=== PATIENT | female | born 2005 | race Caucasian/White ===

== ENCOUNTER 2025-02-08 16:45 | Emergency (ER) | payer BC, SELFPAY ==
--- OUTSIDE RECORDS SUMMARY | 2025-02-08 16:48 | XMS_ITS | Clinical Summary ---
Author Organization [employer] [facility] Address [address] [place] [id number] Care Team Providers Care Side Hemmer Name Role Phone Christina Frye MD Primary Care Provider [phone] Allergies Active Allergy Reactions Criticality Noted Date Comments Amoxicillin Rash 11/19/2014 Cephalexin Rash 11/19/2014 Medications traZODone (DESYREL) 50 mg tabletIndicatio ns:Anxiety,Inso mnia, idiopathic Take 0.5-1 Tablets (25-50 mg) by mouth at bedtime if needed for Sleep or Anxiety. 31 Tablet 1 5 Active escitalopram oxalate (LEXAPRO) 20 mg tabletIndicatio ns:Anxiety Take 1 Tablet (20 mg) by mouth once daily in the morning. 90 Tablet 3 5 Active famotidine (PEPCID) 20 mg tabletIndicatio ns:Chronic GERD Take 1 Tablet (20 mg) by mouth once daily if needed for GI Upset. 90 Tablet 1 5 Active traZODone (DESYREL) 50 mg tabletIndicatio ns:Anxiety,Inso mnia, idiopathic Take 0.5-1 Tablets (25-50 mg) by mouth at bedtime if needed for Sleep or Anxiety. 31 Tablet 1 4 01/10/20 25 Discontinu ed(Reorder (E-cancel not sent)) escitalopram oxalate (LEXAPRO) 10 mg tabletIndicatio ns:Anxiety Take 1 Tablet (10 mg) by mouth once daily in the morning. 90 Tablet 4 01/10/20 25 Discontinu ed(*Medica tion adjustment ) famotidine (PEPCID) 20 mg tabletIndicatio ns:Chronic GERD Take 1 Tablet (20 mg) by mouth once daily if needed for GI Upset. 90 Tablet 1 4 01/10/20 25 Discontinu ed(Reorder (E-cancel not sent)) Active Problems Problem Noted Date Diagnosed Date Cervical cancer screening 01/21/2025 Overview (01/21/2025): 12/2024 UNS Plan: Repeat PAP no later than 4 months Encounters Date Type Department Care Team Description 02/08/2025 3:05 PM CDT E-Visit [facility] [address] [place] [address] Bhavya Altamirano, RN Student eVisit for Diarrhea 02/08/2025 Nurse Triage [facility] [address] [place] [address] Christina Frye MD Diarrhea 01/10/2025 7:55 AM LANGUAGE PATHOLOGIST Office Visit [facility] [address] [place] [address] Christina Frye MD Physical (19 Year Old ); Pap Plan (First one); Medication Management (increase dosage) 01/10/2025 Travel from Last 3 Months Immunizations Immunization Administration Dates Next Due AMB Influenza, IIV4 PF (=>6 mos Flulaval,Fluzone Fluarix)(Flu Clinic Only) 08/20/2014 COVID-19 VACCINE SPIKEVAX (M ODERNA 50MCG/0.5ML) 12YO+ PFS 09/27/2024 COVID-19 vaccine (CranewareBio NTech 30mcg/0.3mL) PF, MDV 10/27/2021,03/21/2021,02/28/2021 DTaP 12/17/2008,04/30/2005 CJkN-BlmH-QFP (Pediarix) 06/10/2004,04/14/2004,0 02/07/2004 HIB PRP-OMP (PedvaxHIB) 12/22/2004,04/14/2004, HPV 9 (Gardasil 9) 08/20/2016,07/08/2015 Hepatitis A (Peds) 10/02/2012,07/04/2009 Hepatitis B (Peds) 04/14/2004,02/07/2004, 004 INFLUENZA, IIV3 PF (AGE >= 6 MO) 09/27/2024 Inactivated Polio Vaccine 12/17/2008 Influenza, IIV3 (Age >=3 years) 12/17/19 09,09/27/2007,12/19/2006,10/26 Influenza, IIV4 09/14/2023,,08/06/2020,10/22,08/14/2018,07/27/2017,08/20/2016 Influenza,LAIV4 Live Intrana [place]lando (Flumist) 09/21/2012 MENINGOCOCCAL VACCINE 2 VIAL 2MO-55YO (MENVEO) 12/12/2020,07/08/2015 MMR 12/17/2008,12/22/2004 Pneumococcal conj 7-Valent (Prevnar 7) 0 12/22/2004,06/10/2004,04/14/2004,02/06 Tdap 07/08/2015 Varicella Vaccine 12/17/2008,12/22/2004 Family History Medical History Relation Name Comments Cancer Father esophageal canc er Cancer-breast Maternal Grandmother good o utcome Cancer-colon Other maternal great grandmother Relation Name Status Comments Father Maternal Grandmother Other Social History Tobacco Use Types Packs/Day Years Used Date Smoking Tobacco: Never Passive Smoke Exposure: Never Smokeless Tobacco: Never Tobacco Cessation:Counseling Given: Yes Alcohol Use Standard Drinks/Week Comments No 0 (1 standard drink = 0.6 oz pur e alcohol) PHQ-2 Answer Date Recorded PHQ-2 TOTAL SCORE 3 06/13/2024 Social Connections Answer Date Recorded Do you often feel lonely or isolated from those around you? 0 01/22/2024 Financial Resource Strain Answer Date R ecorded Difficulty of Paying Living Expenses 3 01/22/2024 Difficulty of Paying Living Expenses Not on file 01/22/2024 Food Insecurity Answer Date Recorded Do you worry your food will run out before you are able to buy more? 1 01/22/2024 Transportation Needs Answer Date Record ed Does lack of transportation keep you from medica l appointments? 1 01/22/2024 Does lack of transportation keep you from work, meetings or getting things that you need? 1 01/22/2024 Housing Stability Answer Date Recorded What is your housing situation today? 1 01/22/2024 Utilities Answer Date Recorded Do you have trouble paying f or utilities (for example, heat, electricity, water, phone)? 1 01/22/2024 Comments No Sex and Gender Information Value Date Recorded Sex Assigned at Not on file Legal Sex Female 8:39 AM CDT Gender Identity Not on file Sexual Orientation Not on file Obstetrics History Para Term AB IAB SAB Ectopic Multiple Livin g Live Births 0 0 Last Filed Vital Signs Vital Sign Reading Time Taken Comments Blood Pressure 86/61 01/10/2025 8:08 AM LANGUAGE PATHOLOGIST Pulse 77 01/10/2025 8:08 AM LANGUAGE PATHOLOGIST Temperature 37.4 C (99.4 F) 11/04/2021 2:59 PM LANGUAGE PATHOLOGIST Respiratory Rate 16 06/08/2017 11:18 AM CDT Oxygen Saturation 100% 01/10/2025 8:08 AM LANGUAGE PATHOLOGIST Inhaled Oxygen Concentration - - Weight 70.8 kg (156 lb) 01/10/2025 8:08 AM LANGUAGE PATHOLOGIST Height 173 cm (5' 8.11) 01/10/2025 8:08 AM LANGUAGE PATHOLOGIST Body Mass Index 23.64 01/10/2025 8:08 AM LANGUAGE PATHOLOGIST Plan of Treatment Upcoming Encounters Date Type Department Care Team (Late st Contact Info) Description 03/07/2025 11:15 AM CDT Telemedicine [facility] [address] [place] [address] Christina Frye MD [address] [place] [address] Health Maintenance Due Date Last Done Comments Pap test for age 21-65 2024 Depression screening for age 12+ 06/13/2025 06/13/2024, 10/19/2023, 08/30/2023, Additional history exists Tetanus booster 07/08/2025 07/08/2015 BMI (ht and wt on same day) for age 18+ 01/10/2026 01/10/2025 Chlamydia for age 16-24 01/10/2026 01/10/20, 06/23/2021, 12/03/2020 Pneumococcal series for age 6-49 Aged Out 12/22/2004, 06/10/2004, 04/14/2004, Additional history exists No longer eligible based on patient's age to complete this topic Tdap Completed 07/08/2015 HPV series for age 9-26 Completed 08/20/2016, 07/08 Meningococcal series for age 11-21 Completed 12/12/2020, 07/08/2015 COVID-19 vaccine series Completed 09/27/20, 11/17/2022, 10/27/2021, Additional history exists Influenza Vaccine Completed 09/27/2024, , 11/17/2022, Additional history exists HIV for age 15-65 Completed 01/10/2025 Hepatitis C screening for age 18-79 Completed 01/10/2025 Procedures Procedure Name Priority Date/Time Associated Diagnosis Comments ANTI HIV 1/2 Routine 01/10/2025 8:50 AM LANGUAGE PATHOLOGIST Screening for HIV (human immunodeficiency virus) ANTI HCV Routine 01/10/2025 8:50 AM LANGUAGE PATHOLOGIST Need for hepatitis C screening test LIPID PANEL W REFLEX MEASURED LDL Routine 01/10/2025 8:50 AM LANGUAGE PATHOLOGIST Lipid screening HEMOGLOBIN Routine 01/10/2025 8:50 AM LANGUAGE PATHOLOGIST Hypotension, unspecified hypotension type BASIC METABOLIC PANEL Routine 01/10/2025 8:50 AM LANGUAGE PATHOLOGIST Hypotension, unspecified hypotension type MEDIA EXECUTIVE THIN PREP PAP SCREEN IMAGED- Unsuccessful Attempt Routine 01/10/2025 8:24 AM LANGUAGE PATHOLOGIST Screening for cervical cancer GC CHLAMYDIA TRACH PROBE Routine 01/10/2025 8:24 AM LANGUAGE PATHOLOGIST Screening for chlamydial disease from Last 3 Months Results * LIPID PANEL W REFLEX MEASURED LDL (01/10/2025 8:50 AM LANGUAGE PATHOLOGIST) CHOLESTEROL, TOTAL 159 <200 mg/dL [facility] HDL CHOLESTEROL 52 > OR = 50 mg/dL [facility] TRIGLYCERIDES 106 <150 mg/dL [facility] LDL-CHOLESTEROL 87 mg/dL (calc) [facility] Comment: Reference range: <100 Desirable range <100 mg/dL for primary prevention; <70 mg/dL for patients with CHD or diabetic patients with > or = 2 CHD risk factors. LDL-C is now calculated using the Shahram-Wang calculation, which is a validated novel method providing better accuracy than the Friedewald equation in the estimation of LDL-C. Shahram SS et al. YAKOV. 2013;310(54): 2444-1104 (http://education.[employer]/faq/IJU090) CHOL/HDLC RATIO 3.1 <5.0 (calc) [facility] NON HDL CHOLESTEROL 107 <130 mg/dL (calc) [facility] Comment: For patients with diabetes plus 1 major ASCVD risk factor, treating to a non-HDL-C goal of <100 mg/dL (LDL-C of <70 mg/dL) is considered a therapeutic option. Blood BLOOD SPECIMEN / Unknown 01/10/2025 8:50 AM LANGUAGE PATHOLOGIST 01/10/2025 8:51 AM LANGUAGE PATHOLOGIST us Christina Frye MD CHEMISTRY Final Resul t [employer] [facility] [address] [place] [address], [facility] [address] [place] [address] * ANTI HCV (01/10/2025 8:50 AM LANGUAGE PATHOLOGIST) HEPATITIS C ANTIBODY NON-REACTI VE NON-REACT HANSEL [facility] Comment: HCV antibody was non-reactive. There is no laboratory evidence of HCV infection. In most cases, no further action is required. However, if recent HCV exposure is suspected, a test for HCV RNA (test code 49520) is suggested. For additional information please refer to http://education.[employer]faq/YMH18s8 (This link is being provided for informational/ educational purposes only.) Blood BLOOD SPECIMEN / Unknown 01/10/2025 8:50 AM LANGUAGE PATHOLOGIST 01/10/2025 8:51 AM LANGUAGE PATHOLOGIST Christina Frye MD SEND OUTS Final Resul t [employer] [address] [address], [facility] [address] [place] [phone] * HEMOGLOBIN (01/10/2025 8:50 AM LANGUAGE PATHOLOGIST) HEMOGLOBIN 14.4 11.7 - 15.5 g/dL [facility] Blood BLOOD SPECIMEN / Unknown 01/10/2025 8:50 AM LANGUAGE PATHOLOGIST 01/10/2025 8:51 AM LANGUAGE PATHOLOGIST Christina Frye MD HEMATOLOGY Final Resul t Performing Organization Address [facility] Co de Phone Number [employer] [address] [address], [facility] [address] [place] [phone] * ANTI HIV 1/2 [22591.0] (01/10/2025 8:50 AM LANGUAGE PATHOLOGIST) HIV AG/AB, 4TH GEN NON-REACT HANSEL NON-REACT HANSEL [facility] [place] Comment: HIV-1 antigen and HIV-1/HIV-2 antibodies were not detected. There is no laboratory evidence of HIV infection. PLEASE NOTE: This information has been disclosed to you from records whose confidentiality may be protected by state law. If your state requires such protection, then the state law prohibits you from making any further disclosure of the information without the specific written consent of the person to whom it pertains, or as otherwise permitted by law. A general authorization for the release of medical or other information is NOT sufficient for this purpose. For additional information please refer to http://education.[employer]faq/JNU956 (This link is being provided for informational/ educational purposes only.) The performance of this assay has not been clinically validated in patients less than 2 years old. Blood BLOOD SPECIMEN / Unknown 01/10/2025 8:50 AM LANGUAGE PATHOLOGIST 01/10/2025 8:51 AM LANGUAGE PATHOLOGIST us Christina Frye MD SEND OUTS Final Resul t [employer] [facility] [address] [place] [address], [facility] [phone] * BASIC METABOLIC PANEL (01/10/2025 8:50 AM LANGUAGE PATHOLOGIST) Pathologist [facility] GLUCOSE 85 65 - 99 mg/dL [facility] Comment: Fasting reference interval UREA NITROGEN (BUN) 8 7 - 25 mg/dL [facility] CREATININE 0.77 0.50 - 0.96 mg/dL [facility] EGFR 112 > OR = 60 mL/min/1. 73m2 [facility] BUN/CREATININE RATIO SEE NOTE: 6 - 22 (calc) [facility] Comment: Not Reported: BUN and Creatinine are within reference range. SODIUM 138 135 - 146 mmol/L [facility] POTASSIUM 4.5 3.5 - 5.3 mmol/L [facility] CHLORIDE 107 98 - 110 mmol/L [facility] CARBON DIOXIDE 23 20 - 32 mmol/L [facility] ELECTROLYTE BALANCE 8 7 - 17 mmol/L (calc) [facility] CALCIUM 9.6 8.6 - 10.2 mg/dL [facility] Blood BLOOD SPECIMEN / Unknown 01/10/2025 8:50 AM LANGUAGE PATHOLOGIST 01/10/2025 8:51 AM LANGUAGE PATHOLOGIST us Christina Frye MD CHEMISTRY Final Resul t [facility] [address] [place] [address], [place] [phone] [facility] [address] [place] [address] * MEDIA EXECUTIVE THIN PREP PAP SCREEN IMAGED [[id number]] (01/10/2025 8:24 AM LANGUAGE PATHOLOGIST) - Unsuccessful Attempt Case Report Gynecologic Cytology Report Case: [id number] Authorizing Provider: Christina Frye MD Collected: 01/10/2025 0824 Ordering Location: [facility] Received: 01/10/2025 0846 Clinic First Screen: Mandy Mckeon Rescreen: Yojana Ball Specimen: MEDIA EXECUTIVE ThinPrep Vial Screening, Cervical 01/21/2025 1:42 PM CDT [facility] INTERPRETATION /RESULT UNSATISFACTORY FOR EVALUATION (UNS) (none) 01/21/2025 1:42 PM CDT [facility] ENTRAL LABORATORY at 1342 CDT SPECIMEN ADEQUACY Specimen processed and examined, but unsatisfactory for evaluation of epithelial abnormality because of: Scant cellularity Foreign material/lubrican t 01/21/2025 1:42 PM CDT [facility] LABORATORY Date of LMP within last month 2024 1:42 PM CDT [facility] ENTRAL LABORATORY Last Pap Date first 01/21/2025 1:42 PM CDT [facility] Last Pap Result First Pap/Unknown 01/21/2025 1:42 PM CDT [facility] ENTRAL LABORATORY Abnormal Pap or [place] Bx in last 5 years No 01/21/2025 1:42 PM CDT [facility] Menstrual Status Regular Periods 01/21/2025 1:42 PM CDT [facility] [place] Bx Done Today No 01/21/2025 1:42 PM CDT [facility] Additional Information None given 01/21/2025 1:42 PM CDT [facility] Comment: Cytology is screened at [facility] - [address], [place] [address] and [facility] - [address], [place] [address] and [facility] - [address] [place] [address] Interpreted at [facility] - [address], [place] [address] Automated Review Failed 01/21/2025 1:42 PM CDT [facility] Comment:Processing failed, m anual screening required. ThinPrep Imaging System, [employer] Note The pap test is a screening technique, not a diagnostic procedure. It is used primarily to screen for squamous cancers and precursor lesions. Published studies have shown that it is subject to both false negative and false positive results. The pap test should not be used as the sole means to diagnose or exclude pre-malignant and malignant lesions. 01/21/2025 1:42 PM CDT [facility] Other (Cervical) Non-Blood / Unknown 01/10/2025 8:24 AM LANGUAGE PATHOLOGIST 01/10/2025 8:46 AM LANGUAGE PATHOLOGIST us Christina Frye MD PATHOLOGY/CYTOLOGY Final Re sult [facility]ORY [address] [place] [address], * GC & CHLAMYDIA DNA PCR [[id number]] (01/10/2025 8:24 AM LANGUAGE PATHOLOGIST) CHLAMYDIA PROBE Negative 6:03 PM LANGUAGE PATHOLOGIST [facility] TRAL LABORATORY N GONORRHOEAE PROBE Negative 01/10/2025 6:03 PM LANGUAGE PATHOLOGIST [facility] TRAL LABORATORY Other VAGINAL SWAB / Unknown Non-Blood / Unknown 01/10/2025 8:24 AM LANGUAGE PATHOLOGIST 01/10/2025 8:46 AM LANGUAGE PATHOLOGIST us Christina Frye MD MICROBIOLOGY Final Resul t [facility] LAB[facility]ORY [address] [place] [address], [place] from Last 3 Months Insurance [facility] Care Teams Side Hemmer Relationship Specialty Start Date End Date Christina Frye MD [address] [place], [place] [phone] PCP - General Family Practice 01/02/18
[2025-02-08 17:12] VITALS: BP 118/79; PULSE 87; RESP 18; TEMP 37; O2SAT 98; BMI 22.4
--- OUTSIDE RECORDS SUMMARY | 2025-02-08 18:28 | XMS_ITS | Clinical Summary ---
Author Organization [employer] Address [address] [place] [id number] Care Team Providers Care Cigarette Roller Name Role Phone Christina Frye MD Primary Care Provider Allergies Active Allergy Reactions Criticality Noted Date [...] Team Description 02/08/2025 3:05 PM CDT E-Visit [facility] [address] [place] [address] Bhavya Altamirano, RN Student eVisit for Diarrhea 02/08/2025 Nurse Triage [facility] [address] [place] [address] Christina Frye MD Diarrhea 01/10/2025 7:55 AM BASTING PULLER Office Visit [facility] [address] [place] [address] Christina Frye MD Physical (19 Year Old ); Pap Plan (First one); Medication Management (increase dosage) 01/10/2025 Travel from Last 3 Months Immunizations Immunization Administration Dates Next Due AMB Influenza, IIV4 PF (=>6 mos Flulaval,Fluzone Fluarix)(Flu Clinic Only) 08/20/2014 COVID-19 VACCINE SPIKEVAX (M ODERNA 50MCG/0.5ML) 12YO+ PFS 09/27/2024 COVID-19 vaccine ([employer] NTech 30mcg/0.3mL) PF, MDV 10/27/2021,03/21/2021,02/28/2021 DTaP 12/17/2008,04/30/2005 PVyD-PxlB-MGX (Pediarix) 06/10/2004,04/14/2004,0 02/07/2004 HIB PRP-OMP (PedvaxHIB) 12/22/2004,04/14/2004, [...] Comments Blood Pressure 86/61 01/10/2025 8:08 AM BASTING PULLER Pulse 77 01/10/2025 8:08 AM BASTING PULLER Temperature 37.4 C (99.4 F) 11/04/2021 2:59 PM BASTING PULLER Respiratory Rate 16 06/08/2017 11:18 AM CDT Oxygen Saturation 100% 01/10/2025 8:08 AM BASTING PULLER Inhaled Oxygen Concentration - - Weight 70.8 kg (156 lb) 01/10/2025 8:08 AM BASTING PULLER Height 173 cm (5' 8.11) 01/10/2025 8:08 AM BASTING PULLER Body Mass Index 23.64 01/10/2025 8:08 AM BASTING PULLER Plan of Treatment Upcoming Encounters Date Type Department Care Team (Late st Contact Info) Description 03/07/2025 11:15 AM CDT Telemedicine [facility] [address] [place] [address] Christina Frye MD [address] [place] [address] Health Maintenance Due Date Last Done Comments [...] ANTI HIV 1/2 Routine 01/10/2025 8:50 AM BASTING PULLER Screening for HIV (human immunodeficiency virus) ANTI HCV Routine 01/10/2025 8:50 AM BASTING PULLER Need for hepatitis C screening test LIPID PANEL W REFLEX MEASURED LDL Routine 01/10/2025 8:50 AM BASTING PULLER Lipid screening HEMOGLOBIN Routine 01/10/2025 8:50 AM BASTING PULLER Hypotension, unspecified hypotension type BASIC METABOLIC PANEL Routine 01/10/2025 8:50 AM BASTING PULLER Hypotension, unspecified hypotension type OFFICE SPEC THIN PREP PAP SCREEN IMAGED- Unsuccessful Attempt Routine 01/10/2025 8:24 AM BASTING PULLER Screening for cervical cancer GC CHLAMYDIA TRACH PROBE Routine 01/10/2025 8:24 AM BASTING PULLER Screening for chlamydial disease from Last 3 Months Results * LIPID PANEL W REFLEX MEASURED LDL (01/10/2025 8:50 AM BASTING PULLER) CHOLESTEROL, TOTAL 159 <200 mg/dL Outcome Referrals-W ojatinder Brown HDL CHOLESTEROL 52 > OR = 50 mg/dL Outcome Referrals-W ojatinder Kevin TRIGLYCERIDES 106 <150 mg/dL [facility] LDL-CHOLESTEROL 87 mg/dL (calc) [facility] Comment: Reference range: <100 Desirable range <100 mg/dL for primary prevention; <70 mg/dL for patients with CHD or diabetic patients with > or = 2 CHD risk factors. LDL-C is now calculated using the Shahram-Wang calculation, which is a validated novel method providing better accuracy than the Friedewald equation in the estimation of LDL-C. Shahram SS et al. YAKOV. 2013;310(07): 1604-6999 (http://education.[employer]/faq/VHG885) CHOL/HDLC RATIO 3.1 <5.0 (calc) Outcome Referrals-W molly Hwange NON HDL CHOLESTEROL 107 <130 mg/dL (calc) Outcome Referrals-W molly Hwange Comment: For patients with diabetes plus 1 major ASCVD risk factor, treating to a non-HDL-C goal of <100 mg/dL (LDL-C of <70 mg/dL) is considered a therapeutic option. Blood BLOOD SPECIMEN / Unknown 01/10/2025 8:50 AM BASTING PULLER 01/10/2025 8:51 AM BASTING PULLER us Christina Frye MD CHEMISTRY Final Resul t [facility] [address] [place] [address], [facility] [address] [place] [address] * ANTI HCV (01/10/2025 8:50 AM BASTING PULLER) HEPATITIS C ANTIBODY NON-REACTI VE NON-REACT HANSEL Outcome Referrals-W molly Brown Comment: HCV antibody was non-reactive. There is no laboratory evidence of HCV infection. In most cases, no further action is required. However, if recent HCV exposure is suspected, a test for HCV RNA (test code 04908) is suggested. For additional information please refer to http://education.[employer]/faq/ERX10t0 (This link is being provided for informational/ educational purposes only.) Blood BLOOD SPECIMEN / Unknown 01/10/2025 8:50 AM BASTING PULLER 01/10/2025 8:51 AM BASTING PULLER Christina Frye MD SEND OUTS Final Resul t [employer] [address] [address], [facility] [address] [place] [phone] * HEMOGLOBIN (01/10/2025 8:50 AM BASTING PULLER) HEMOGLOBIN 14.4 11.7 - 15.5 g/dL [facility] Blood BLOOD SPECIMEN / Unknown 01/10/2025 8:50 AM BASTING PULLER 01/10/2025 8:51 AM BASTING PULLER Christina Frye MD HEMATOLOGY Final Resul t Performing Organization Address [facility] Co de Phone Number [employer] [address] [address], [facility] [address] [place] [phone] * ANTI HIV 1/2 [75330.0] (01/10/2025 8:50 AM BASTING PULLER) HIV AG/AB, 4TH GEN NON-REACT HANSEL NON-REACT HANSEL Outcome Referrals- [place] Comment: HIV-1 antigen and HIV-1/HIV-2 antibodies were [...] purpose. For additional information please refer to http://education.Instant Opinion/faq/BVA437 (This link is being provided for informational/ educational purposes only.) The performance of this assay has not been clinically validated in patients less than 2 years old. Blood BLOOD SPECIMEN / Unknown 01/10/2025 8:50 AM BASTING PULLER 01/10/2025 8:51 AM BASTING PULLER us Christina Frye MD SEND OUTS Final Resul t [employer] [address] [place] [address], Outcome Referrals[address] [phone] * BASIC METABOLIC PANEL (01/10/2025 8:50 AM BASTING PULLER) Pathologist [facility] GLUCOSE 85 65 - 99 mg/dL [facility] Comment: Fasting reference interval UREA [...] BLOOD SPECIMEN / Unknown 01/10/2025 8:50 AM BASTING PULLER 01/10/2025 8:51 AM BASTING PULLER us Christina Frye MD CHEMISTRY Final Resul t [facility] [address] [place] [address], [place] [phone] [facility] [address] [place] [address] * OFFICE SPEC THIN PREP PAP SCREEN IMAGED [[id number]] (01/10/2025 8:24 AM BASTING PULLER) - Unsuccessful Attempt Case Report Gynecologic Cytology Report Case: [id number] Authorizing Provider: Christina Frye MD Collected: 01/10/2025 0824 Ordering Location: [facility] Received: 01/10/2025 0846 Clinic First Screen: Mandy Mckeon Rescreen: Yojana Blal Specimen: OFFICE SPEC ThinPrep Vial Screening, Cervical 01/21/2025 1:42 PM CDT [facility] INTERPRETATION /RESULT UNSATISFACTORY FOR EVALUATION (UNS) (none) 01/21/2025 1:42 PM CDT [facility] [employer] ENTRAL LABORATORY at 1342 CDT SPECIMEN ADEQUACY Specimen processed and examined, but unsatisfactory for evaluation of epithelial abnormality because of: Scant cellularity Foreign material/lubrican t 01/21/2025 1:42 PM CDT [facility]AL LABORAT[facility] Date of LMP within last month 2024 1:42 PM CDT [facility] [employer] ENTRAL LABORATORY Last Pap Date first 01/21/2025 1:42 PM CDT [facility] Last Pap Result First Pap/Unknown 01/21/2025 1:42 PM CDT [facility] [employer] ENTRAL LABORATORY Abnormal Pap or [place] Bx in last 5 years No 01/21/2025 1:42 PM CDT [facility] Menstrual Status Regular Periods 01/21/2025 1:42 PM CDT [facility] [place] Bx Done Today No 01/21/2025 1:42 PM CDT [facility] Additional Information None given 01/21/2025 1:42 PM CDT [facility] Comment: Cytology is screened at [facility] - [address], [place] [address] and [facility] - [address], [place] [address] and Laboratory - [address] [place] [address] Interpreted at [facility] - [address], [place] [address] Automated Review Failed 01/21/2025 1:42 PM CDT [facility] Comment:Processing failed, m anual screening required. ThinPrep Imaging System, [employer] Note The pap test is a [...] and malignant lesions. 01/21/2025 1:42 PM CDT [facility] Other (Cervical) Non-Blood / Unknown 01/10/2025 8:24 AM BASTING PULLER 01/10/2025 8:46 AM BASTING PULLER us Christina Frye MD PATHOLOGY/CYTOLOGY Final Re sult [facility] [address] [place] [address], * GC & CHLAMYDIA DNA PCR [[id number]] (01/10/2025 8:24 AM BASTING PULLER) CHLAMYDIA PROBE Negative 6:03 PM BASTING PULLER [facility] TRAL LABORATORY N GONORRHOEAE PROBE Negative 01/10/2025 6:03 PM BASTING PULLER [facility] TRAL LABORATORY Other VAGINAL SWAB / Unknown Non-Blood / Unknown 01/10/2025 8:24 AM BASTING PULLER 01/10/2025 8:46 AM BASTING PULLER us Christina Frye MD MICROBIOLOGY Final Resul t [facility] [address] [place] [address], [place] from Last [address] [facility] Care Teams Cigarette Roller Relationship Specialty Start Date End Date Christina Frye MD [address] [place], [place] [id number] PCP - General Family Practice 01/02/18
[2025-02-08] MEDS: 0.9 % SODIUM CHLORIDE 1000 ml 1,000 ML IV (18:48)
[2025-02-08 19:08] LABS: Basophils Absolute Auto 0.01 K/uL (0.00-0.30); Basophils Percent Auto 0.1 % (0.0-3.0); Eosinophils Absolute Auto 0.12 K/uL (0.00-0.50); Eosinophils Percent Auto 1.4 % (0.0-7.0); Hematocrit 41.5 % (33.0-51.0); Hemoglobin* 13.9 gm/dL (12.0-16.0); Lymphocytes Percent Auto 17.8 % (20-44); Mean Corpuscular HGB Conc 34 gm/dL (32-36); Mean Corpuscular Hemoglobin 31 pg (26-34); Mean Corpuscular Volume 91 fL (80-100); Monocytes Percent Auto 6.1 % (0.0-11.0); Neutrophils Percent Auto 74.6 % (42.0-72.0); Platelet Count* 161 K/uL (140-440); RDW Coefficient of Variation % 12.4 % (11.5-15.5); Red Blood Count 4.55 m/uL (4.00-5.20); White Blood Count* 8.54 K/uL (4.50-11.00)
[2025-02-08 19:10] LABS: Slide Review Reflex No
--- NOTE | 2025-02-08 19:12 | ED.GENADULT ---
HPI - General Adult General Date Seen: 02/08/25 Chief complaint: Abdominal Pain Stated complaint: Abdominal pain, diarrhea Time Seen by Provider: 02/08/25 18:05 History of Present Illness HPI narrative: Patient is a 19-year-old young woman here with her mom for evaluation of diarrhea for the past week. They were in [place] when this started, she was exposed to some non city water, but no one else has gotten sick. No recent antibiotics. She has had some crampy abdominal pain, occasionally sharp, she had a few days where she saw some blood in her stool though that is resolved. She has not had any fevers or unusual rashes. She has had some nausea but no vomiting. She has been trying to keep up on hydration, feels like she has lost a little bit of weight. Symptoms do not seem to be getting any better, in fact she feels like stools are more watery than they were. General health is good. She takes a medication for anxiety, no other medications and no substances. Related Data Home Medications ?Medication ?Instructions ?Recorded ?Confirmed famotidine 20 mg tablet 20 mg PO DAILY PRN 02/08/25 02/08/25 fluoxetine 40 mg capsule 40 mg PO QAM 02/08/25 02/08/25 trazodone 50 mg tablet mg PO 02/08/25 Allergies Allergy/AdvReac Type Severity Reaction Status Date / Time amoxicillin Allergy Mild Rash Verified 02/08/25 17:20 cephalexin Allergy Mild rash Verified 02/08/25 17:20 Review of Systems Status of ROS: Reports: 6 or more systems reviewed and unremarkable except as noted in History and below Exam Narrative: Exam Narrative: Vital signs reviewed In general, alert, nontoxic young woman. Head: Normocephalic, atraumatic. Eyes: Sclera clear. Pupils equal and reactive. ENT: Mucous membranes moist, lips are dry. Neck: Supple without adenopathy. Heart: Regular rate and rhythm without murmur. Lungs: Clear. No increased work of breathing, crackles or wheezes. Abdomen: Soft, nontender to palpation. Extremities: Well perfused, pulses intact. No significant edema. Neurologic: Alert, conversant. Speech fluent, face symmetric. Moves all extremities equally. Skin: Warm, dry well perfused. Affect: Normal. Const: Vital Signs, click to edit/add: Vital Signs - 24 hr 02/08/25 17:12 Temperature 98.6 F Pulse Rate [Pulse Oximeter] 87 Respiratory Rate 18 [facility] 118[facility]79 Pulse Oximetry 98 Oxygen Delivery Me thod Room Air Course Course ED Course: Examined vital signs are reassuring. She may be slightly dehydrated. Will try and send some stool studies if she has diarrhea while here. Otherwise, checking electrolytes, will give her some IV fluids. Labs reviewed and normal. Stool studies pending. She is feeling improved after IV fluids and comfortable going home. Discussed that symptoms may be viral, if we find anything on the stool studies that needs to be addressed we will contact her. If symptoms persist, consider other causes, would recommend primary care follow-up at that time. Return to the ER for worsening, significant bloody stools, fevers, severe abdominal pain unusual rashes or other significant changes. I do think it is reasonable to try a couple of doses of Imodium symptomatically. Vital Signs Vital signs: Initial Vital Signs Temperature 98.6 F 02/08/25 17:12 Temperature Source Temporal Artery Scan 02/08/25 17:12 Pulse Rate 87 02/08/25 17:12 Respiratory Rate 18 02/08/25 17:12 Blood Pressure 118/79 02/08/25 17:12 Blood Pressure Mean 92 02/08/25 17:12 Blood Pressure Position Sitting 02/08/25 17:12 Pulse Oximetry 98 02/08/25 17:12 Oxygen Delivery Method Room Air 02/08/25 17:12 Vital Signs Temperature 98.6 F 02/08/25 17:12 Pulse Rate 87 02/08/25 17:12 Respiratory Rate 18 02/08/25 17:12 Blood Pressure 118/79 02/08/25 17:12 Pulse Oximetry 98 02/08/25 17:12 Oxygen Delivery Method Room Air 02/08/25 17:12 Temperature 98.6 F 02/08/25 17:12 Pulse Rate 87 02/08/25 17:12 Respiratory Rate 18 02/08/25 17:12 Blood Pressure 118/79 02/08/25 17:12 Pulse Oximetry 98 02/08/25 17:12 Oxygen Delivery Method Room Air 02/08/25 17:12 Medications Administered Medications: Discontinued Medications Generic Name Dose Route Start Last Admin Trade Name Freq PRN Reason Stop Dose Admin Sodium Chloride 1,000 mls @ 1,000 mls/hr 02/08/25 18:45 02/08/25 19:41 0.9 % Sodium Chloride 1000 Ml IV 02/08/25 19:44 Infused .Q1H JULIÁN Infusion Medical Decision Making Lab Data Lab results reviewed: Yes I reviewed the patient's lab results Labs: Lab Results 02/08/25 Range/Units 18:44 WBC 8.54 (4.50-11.00) K/uL RBC 4.55 (4.00-5.20) m/uL Hgb 13.9 (12.0-16.0) gm/dL Hct 41.5 (33.0-51.0) % MCV 91 (80-100) fL MCH 31 (26-34) pg MCHC 34 (32-36) gm/dL RDW Coeff of Ernie 12.4 (11.5-15.5) % Plt Count 161 (140-440) K/uL Neut % (Auto) 74.6 H (42.0-72.0) % Lymph % (Auto) 17.8 L (20-44) % Karnes % (Auto) 6.1 (0.0-11.0) % Eos % (Auto) 1.4 (0.0-7.0) % Baso % (Auto) 0.1 (0.0-3.0) % Neut # (Auto) 6.40 (1.7-7.0) K/uL Lymph # (Auto) 1.50 (0.90-2.90) K/uL Karnes # (Auto) 0.50 (0.00-0.90) K/UL Eos # (Auto) 0.12 (0.00-0.50) K/uL Baso # (Auto) 0.01 (0.00-0.30) K/uL Abs Immat Gran (auto) 0.00 (0.00-0.30) K/uL Imm/Tot Granulo (auto) 0.0 % Sodium 136 (135-149) mmol/L Potassium 4.1 (3.6-5.1) mmol/L Chloride 103 (96-114) mmol/L Carbon Dioxide 20 (20-32) mmol/L Anion Gap 13 (7-15) mEq/L BUN 11 (5-24) mg/dL Creatinine 0.6 (0.5-1.5) mg/dL Estimated Creat Clear 149.62 Estimated GFR 131 ml/min Glucose 65 (60-115) mg/dL Calcium 9.5 (8.4-10.6) mg/dL Total Bilirubin 1.5 (0.1-1.5) mg/dL AST 34 (12-35) U/L ALT 19 (4-35) U/L Alkaline Phosphatase 70 (40-150) U/L Total Protein 7.8 (6.0-8.3) g/dL Albumin 5.0 (3.3-5.0) g/dL Discharge Plan Discharge Clinical Impression: Diarrhea Patient Disposition: Home, Self-Care Condition: Improved Instructions: Acute Diarrhea (ED) Additional Instructions: You can use a couple of doses of Imodium to see if this helps to symptomatically. Maintain hydration. We will call you if the stool studies show anything needs to be specifically addressed. If you continue to have diarrhea beyond the next few days follow-up with your primary care clinic If you have significant bloody stools, worsening abdominal pain, or new symptoms such as fever unusual rashes, return to the emergency department for re-evaluation. Keep diet bland until feeling better. Prescriptions: No Action fluoxetine 40 mg capsule 40 mg PO QAM trazodone 50 mg tablet PO famotidine 20 mg tablet 20 mg PO DAILY PRN Follow Up/Referrals: Provider,Not a Local [Primary Care Provider] - Stand Alone Forms: [employer] Info Instructions
[2025-02-08 19:29] LABS: Chloride* 103 mmol/L (96-114); Potassium* 4.1 mmol/L (3.6-5.1); Sodium* 136 mmol/L (135-149)
[2025-02-08 19:30] VITALS: O2SAT 98
[2025-02-08 19:32] LABS: Alanine Aminotransferase* 19 U/L (4-35); Alkaline Phosphatase* 70 U/L (40-150); Anion Gap 13 mEq/L (7-15); Aspartate Amino Transferase* 34 U/L (12-35); Bilirubin Total* 1.5 mg/dL (0.1-1.5); Blood Urea Nitrogen* 11 mg/dL (5-24); Calcium* 9.5 mg/dL (8.4-10.6); Carbon Dioxide* 20 mmol/L (20-32); Creatinine* 0.6 mg/dL (0.5-1.5); Est. Creatinine Clearance* 149.62; Estimated Glomerular Filt Rate 131 ml/min; Glucose* 65 mg/dL (60-115); Total Protein* 7.8 g/dL (6.0-8.3)
[2025-02-08 21:06] VITALS: BP 121/74; PULSE 80; RESP 18; TEMP 37; O2SAT 98
[2025-02-08 21:07] VITALS: BP 121/74; PULSE 80; RESP 18; TEMP 37
[2025-02-18 03:56] LABS: Ova and Parasite, Fecal Negative (Negative)
== END 2025-02-08 21:10 | disposition home or self-care (01) ==
PROVIDERS: Emergency Provider Emergency Medicine
DX: R19.7 Diarrhea, unspecified (principal)
CPT/HCPCS: 36415; 80053; 85025; 87045; 87046; 87177; 87209; 87329; 87427; 87493; 94761; 99283; 99284; J7030